=== PATIENT | female | born 1945 | race Caucasian/White ===

== ENCOUNTER → 2021-07-03 09:19 | Outpatient (BNVA) | payer MEDICARE, SELFPAY | PROVIDERS: PCP Internal Medicine; Visit Provider Nurse Practitioner Family | DX: M17.0 Bilateral primary osteoarthritis of knee (principal); M25.569 Pain in unspecified knee; G89.29 Other chronic pain | CPT/HCPCS: 99202 ==

== ENCOUNTER → 2021-07-20 15:20 | Outpatient (BNVA) | payer MEDICARE, SELFPAY | PROVIDERS: PCP Internal Medicine; Visit Provider Internal Medicine | DX: M17.0 Bilateral primary osteoarthritis of knee (principal) | CPT/HCPCS: 20610; J3300 ==

== ENCOUNTER → 2021-10-21 08:51 | Outpatient (BNVA) | payer MEDICARE, SELFPAY | PROVIDERS: PCP Internal Medicine; Visit Provider Anesthesiology | DX: M17.0 Bilateral primary osteoarthritis of knee (principal) | CPT/HCPCS: 20610; 99212; J3300 ==

== ENCOUNTER → 2022-04-05 09:16 | Outpatient (BNVA) | payer MEDICARE, SELFPAY | PROVIDERS: PCP Internal Medicine; Visit Provider Internal Medicine | DX: M17.0 Bilateral primary osteoarthritis of knee (principal) | CPT/HCPCS: 20610 ==

== ENCOUNTER → 2022-05-10 08:48 | Outpatient (BNVA) | payer MEDICARE, SELFPAY | PROVIDERS: PCP Internal Medicine; Visit Provider Internal Medicine | DX: M17.0 Bilateral primary osteoarthritis of knee (principal) | CPT/HCPCS: 20610; J2795; J3301 ==

== ENCOUNTER 2022-12-10 09:27 | Outpatient (AMB) | payer MEDICARE, SELFPAY ==
--- NOTE | 2022-12-10 09:38 | A.OFFVIS_ITS ---
Intake Vital Signs 12/10/22 09:39 Height 5 ft 2 in Weight 203 lb BMI 37.1 BP 156/75 H Blood Pressure Location Rt brachial Position Sitting Respiration 14 Pulse 71 Pulse Source Pulse Oximeter Pulse Oximetry (%) 96 Oxygen Delivery Method Room Air Intake Visit Reasons: Left knee injection Allergies No Known Allergies Allergy (Mild, Verified 05/10/22 09:01) NO HPI Left knee injection HPI Details 77-year-old female who presents today to the office for a left knee injection. Denies any recent cough, cold, infection, fever or other significant changes in medical history since last office visit. Past procedures: 05/10/22: Left knee intra-articular ster oid injection: % relief. 04/05/22: Right knee intra-articular ster oid injection: % relief. 07/20/21: Right knee intra-articular inje ction of corticosteroid: % relief. Review of Systems Const All systems reviewed & are unremarkable except as noted in HPI and below Physical Exam Vital Signs: Last Vital Signs Pulse 71 12/10/22 09:39 Resp 14 12/10/22 09:39 BP 156/75 H 12/10/22 09:39 Pulse Ox 96 12/10/22 09:39 Oxygen Delivery Method Room Air 12/10/22 09:39 BMI result Body Mass Index 37.1 General: Appears afebrile. Alert and oriented. Mood and affect appropriate. Follows and participates in conversation appropriately. Respiratory effort is unlabored. Able to transition from sit to stand unassisted. Ambulates with bilaterally normal heel strike and toe off. Office Procedures Joint Injection/Drain Joint Injection/Drain Details: Left knee injection A synovial fluid collection was observed in the patellofemoral compartment and aspirated using a 22 gauge needle. 8 mL of clear synovial fluid was aspirated and appropriately disposed. This was followed by an injection of Kenalog and local anesthetic mixture as noted below. Primary Site: left knee Prep: site was prepped using sterile technique Injected: 40 mg of, Kenalog, with 3 mL of and 1% plain lidocaine Approach Used: anterior Procedure: The patient tolerated the procedure well Coding 36997 - Large joint ( Knee joint aspiration/injection) Procedure code (CPT) selection complete Results Reviewed Results Reviewed: No imaging is available for review. Assessment & Plan Assessment & Plan (1) Bilateral primary osteoarthritis of knee: Code(s): M17.0 - Bilateral primary osteoarthritis of knee Plan Patient is status post left knee aspiration and injection. Patient tolerated procedure well and was discharged home in stable condition with discharge instructions. All questions were answered. We will follow-up in two weeks via telephone or in clinic to assess response to therapy. A follow-up appointment was made during today's visit. Scribed for Dr. Mari by Joe Sage, medical appliance maker, on 12/10/2022. I, Dr. Mari, have personally reviewed and agree with the information entered by the scribe. Coding Level of Care Code Procedure Only Diagnoses Bilateral primary osteoarthritis of knee M17.0 CPT Codes Coding - 73036 Large joint: 59739 - Large joint ([id number])
[2022-12-10 09:39] VITALS: BP 156/75; PULSE 71; RESP 14; O2SAT 96; BMI 37.1
== END 2022-12-10 09:59 | disposition home or self-care (01) ==
PROVIDERS: PCP Internal Medicine; Visit Provider Internal Medicine
DX: M17.12 Unilateral primary osteoarthritis, left knee (principal)
CPT/HCPCS: 20610

== ENCOUNTER → 2022-12-10 09:27 | Outpatient (BNVA) | payer MEDICARE, SELFPAY | PROVIDERS: PCP Internal Medicine; Visit Provider Internal Medicine | DX: M17.0 Bilateral primary osteoarthritis of knee (principal) | CPT/HCPCS: 20610; J3301 ==